=== PATIENT | male | born 1960 | race African-American/Black ===

== ENCOUNTER 2019-10-27 16:55 | Inpatient (IN) ==
[2019-10-27] MEDS ORDERED: MAGNESIUM SULF RIDER 4 GM in PREMIX 1 EACH IV PRN (20:53)
[2019-10-27] MEDS ORDERED: DEXTROSE 50% 25 GM/50 ML VIAL IV PRN (20:53)
[2019-10-27] MEDS ORDERED: GLUCAGON 1 MG VIAL IM PRN (20:53)
[2019-10-27] MEDS ORDERED: MAGNESIUM SULF RIDER 2 GM in PREMIX 1 EACH IV PRN (20:53)
[2019-10-27] MEDS ORDERED: ONDANSETRON 4 MG/2 ML VIAL IV PRN (20:53)
[2019-10-27] MEDS ORDERED: ALBUTEROL/IPRATROPIUM 3 ML NEB RESP TX PRN (20:53)
[2019-10-27] MEDS: SODIUM CHLORIDE 0.9% 1,000 ML IV SCH (21:00)
[2019-10-27] MEDS ORDERED: SODIUM CHLORIDE 0.9% 1,000 ML IV PRN (21:05)
[2019-10-27 21:11] LABS: Eosinophils % 0.3 % (0.00-10.9); Immature Granulocytes Absolute 0.07 #; Lymphocytes # 1.6 10*3/uL (1.4-4.0); Lymphocytes % 21.7 % (21.2-54.2); Mean Corpuscular HGB Conc 30.9 GM/DL (32-36); Mean Platelet Volume 11.3 FL (9.6-12.0); Monocytes % 16.3 % (1.7-12.7); NRBC # 0.02 10*3/uL; Neutrophils % 60.7 % (38.7-73.9); Platelet Count 75 T/CUMM (130-400); Red Blood Count 1.76 MC/CUMM (3.8-5.5); Red Cell Distribution Width 15.7 % (9.3-17.3); White Blood Count 7.2 T/CUMM (4-12)
[2019-10-27 21:17] LABS: Hematocrit 16.2 VOL% (42.0-52.0)
[2019-10-27 21:23] LABS: INR 4.1
[2019-10-27 21:25] LABS: PT Patient Result 44.3 SECS (9.6-12.2); Partial Thromboplastin Time 53.4 SECS (20.8-36.0)
[2019-10-27 21:51] LABS: Anisocytosis 1+; Lymphocytes 26 % (20-55); Macrocytosis 1+; Microcytosis 1+; Platelet Estimate Decreased; Polychromasia Slight; Segmented Neutrophils 64 % (50-85); Total Cells Counted 100
[2019-10-27] MEDS: INSULIN LISPRO 100 UNIT/ML SUBCUT SCH (21:58)
[2019-10-27] MEDS: PANTOPRAZOLE INJ 200 MG in SODIUM CHLORIDE 0.9% 250 ML IV SCH (21:59)
[2019-10-27 22:08] LABS: Risk Ratio 3.47; Thyroid Stimulating Hormone 0.674 uIU/ml (0.358-3.74); VLDL CHOLESTEROL 21.4 MG/DL
[2019-10-28] MEDS: FUROSEMIDE 20 MG/2 ML VIAL IV PRN ×2 (01:13→03:53)
[2019-10-28 02:19] LABS: Apearance,Urine CLEAR (Clear); Bilirubin,Urine Negative (Negative); Blood, Urine Small mg/dL (Negative); Glucose,Urine (UA) Negative (Negative); Ketones,Urine Negative (Negative); Nitrite,Urine Negative (Negative); Protein,Urine Negative; RBC,Urine 3 /HPF (0-4); Squamous Epithelial Cell,Urine Occasional /HPF (0-10); Urine Color Yellow (Yellow); Urine Specific Gravity 1.011 (1.001-1.035); Urine Urobilinogen < 2.0 EU/DL (0.2-1.0); WBC,Urine 2 /HPF (0-6)
[2019-10-28 05:59] LABS: Hematocrit 22.4 VOL% (42.0-52.0)
[2019-10-28 06:22] LABS: Hemoglobin 7.2 GM/DL (14.0-18.0)
[2019-10-28] MEDS ORDERED: SODIUM CHLORIDE 0.9% 1,000 ML IV PRN (07:36)
[2019-10-28] MEDS ORDERED: PHYTONADIONE 10 MG/1 ML AMP SUBCUT ONE (07:36)
[2019-10-28] MEDS: SODIUM CHLORIDE 0.9% 1,000 ML IV SCH (08:41)
[2019-10-28] MEDS: INSULIN LISPRO 100 UNIT/ML SUBCUT SCH ×3 (08:41→23:55)
[2019-10-28 10:33] LABS: Hematocrit 21.7 VOL% (42.0-52.0)
[2019-10-28 16:16] LABS: Calcium 8.3 MG/DL (8.5-10.1); Osmolality,Calculated 307.8 MOS/KG (273-304)
[2019-10-28] MEDS: MONTELUKAST 10 MG TABLET PO SCH (23:56)
[2019-10-28] MEDS: carvediloL 6.25 MG TABLET PO SCH (23:56)
[2019-10-29] MEDS: ALBUTEROL 2.5 MG/3 ML NEB RESP TX SCH ×3 (00:18→20:32)
[2019-10-29] MEDS: PANTOPRAZOLE INJ 200 MG in SODIUM CHLORIDE 0.9% 250 ML IV SCH (00:37)
[2019-10-29 01:14] LABS: Hematocrit 21.7 VOL% (42.0-52.0); Hemoglobin 7.3 GM/DL (14.0-18.0)
[2019-10-29 01:28] LABS: INR 2.2
[2019-10-29 01:29] LABS: PT Patient Result 23.5 SECS (9.6-12.2)
[2019-10-29 07:01] LABS: Basophils % 0.2 % (0.0-0.8); Eosinophils % 0.3 % (0.00-10.9); Hematocrit 21.2 VOL% (42.0-52.0); Immature Granulocytes % 1.2 %; Immature Granulocytes Absolute 0.07 #; Lymphocytes # 1.1 10*3/uL (1.4-4.0); Lymphocytes % 19.7 % (21.2-54.2); Mean Platelet Volume 11.1 FL (9.6-12.0); Monocytes % 14.5 % (1.7-12.7); Neutrophils % 64.1 % (38.7-73.9); Red Blood Count 2.28 MC/CUMM (3.8-5.5); Red Cell Distribution Width 14.6 % (9.3-17.3); White Blood Count 5.8 T/CUMM (4-12)
[2019-10-29 07:11] LABS: Platelet Count 65 T/CUMM (130-400)
[2019-10-29 07:16] LABS: Calcium 7.9 MG/DL (8.5-10.1); Osmolality,Calculated 296.5 MOS/KG (273-304)
[2019-10-29 07:18] LABS: Hypochromasia 1+
[2019-10-29 07:19] LABS: Microcytosis 1+; Ovalocytes Slight; Platelet Estimate Decreased
[2019-10-29] MEDS ORDERED: LACTATED RINGERS 1,000 ML IV SCH (08:00)
[2019-10-29] MEDS ORDERED: GLUCAGON 1 MG VIAL IM PRN (08:58)
[2019-10-29] MEDS ORDERED: DEXTROSE 10% 250 ML BAG IV PRN (08:58)
[2019-10-29 09:13] LABS: ABG Base Excess 4.4 MMOL/L (-2.5-2.5); ABG HCO3 28.9 MMOL/L (20-26); ABG Oxygen Saturation 84.8 % (95-100); ABG PCO2 43.2 MM HG (35-48); ABG PH 7.444 (7.35-7.45); ABG PO2 46.2 MM HG (80-95); ABG TCO2 30.3 MMOL/L (23-27); Allen Test Positive
[2019-10-29 09:24] LABS: INR 1.6; PT Patient Result 17.3 SECS (9.6-12.2)
[2019-10-29] MEDS ORDERED: LIDOCAINE 2% 5 ML VIAL ONE (10:00)
[2019-10-29] MEDS ORDERED: PROPOFOL 200 MG/20 ML VIAL IV ONE (10:00)
[2019-10-29] MEDS ORDERED: EPOETIN ALFA 10,000 UNIT/1 ML VIAL IV PRN (10:06)
[2019-10-29] MEDS ORDERED: EPINEPHrine 1 MG/ML VIAL ONE (12:37)
[2019-10-29] MEDS: INSULIN LISPRO 100 UNIT/ML SUBCUT SCH ×4 (15:29→22:32)
[2019-10-29] MEDS: AMIODARONE 200 MG TABLET PO SCH (15:30)
[2019-10-29] MEDS: LACTATED RINGERS 1,000 ML IV SCH (15:30)
[2019-10-29] MEDS: carvediloL 6.25 MG TABLET PO SCH ×2 (15:30→19:14)
[2019-10-29] MEDS: MONTELUKAST 10 MG TABLET PO SCH (22:22)
[2019-10-29] MEDS: PANTOPRAZOLE 40 MG VIAL IV SCH (22:24)
[2019-10-30 05:26] LABS: Basophils % 0.4 % (0.0-0.8); Eosinophils # 0.1 10*3/uL (0.0-0.87); Eosinophils % 0.9 % (0.00-10.9); Hematocrit 19.1 VOL% (42.0-52.0); Immature Granulocytes % 1.1 %; Immature Granulocytes Absolute 0.06 #; Lymphocytes # 1.1 10*3/uL (1.4-4.0); Lymphocytes % 20.5 % (21.2-54.2); Mean Corpuscular HGB Conc 31.4 GM/DL (32-36); Mean Corpuscular Volume 95.5 FL (87-102); Monocytes % 17.6 % (1.7-12.7); Neutrophils % 59.5 % (38.7-73.9); Platelet Count 61 T/CUMM (130-400); Red Cell Distribution Width 15.3 % (9.3-17.3); White Blood Count 5.3 T/CUMM (4-12)
[2019-10-30] MEDS ORDERED: SODIUM CHLORIDE 0.9% 1,000 ML IV PRN (05:42)
[2019-10-30 06:31] LABS: Band Neutrophils 1 % (0-10); Lymphocytes 16 % (20-55); Nucleated Red Blood Cells 1 (0-5); Segmented Neutrophils 72 % (50-85); Total Cells Counted 100
[2019-10-30 06:32] LABS: Atypical Lymphocytes Few; Hypochromasia 1+; Microcytosis 1+; Polychromasia Slight
[2019-10-30 06:33] LABS: Platelet Estimate Decreased
[2019-10-30] MEDS: ALBUTEROL 2.5 MG/3 ML NEB RESP TX SCH ×2 (07:48→19:51)
[2019-10-30] MEDS: INSULIN LISPRO 100 UNIT/ML SUBCUT SCH ×4 (08:00→20:50)
[2019-10-30] MEDS ORDERED: LACTATED RINGERS 1,000 ML IV SCH (08:00)
[2019-10-30] MEDS: LACTATED RINGERS 1,000 ML IV SCH (09:51)
[2019-10-30] MEDS: carvediloL 6.25 MG TABLET PO SCH ×2 (09:51→17:23)
[2019-10-30] MEDS: AMIODARONE 200 MG TABLET PO SCH (09:55)
[2019-10-30] MEDS: PANTOPRAZOLE 40 MG VIAL IV SCH ×2 (09:55→20:46)
[2019-10-30 18:22] LABS: Hematocrit 24.7 VOL% (42.0-52.0); Hemoglobin 7.9 GM/DL (14.0-18.0)
[2019-10-30] MEDS: MONTELUKAST 10 MG TABLET PO SCH (20:46)
[2019-10-31 06:21] LABS: Basophils % 0.2 % (0.0-0.8); Eosinophils % 0.4 % (0.00-10.9); Hematocrit 24.4 VOL% (42.0-52.0); Immature Granulocytes % 1.5 %; Immature Granulocytes Absolute 0.08 #; Lymphocytes % 17.8 % (21.2-54.2); Mean Corpuscular HGB Conc 32.8 GM/DL (32-36); Mean Corpuscular Volume 90.7 FL (87-102); Monocytes % 18.3 % (1.7-12.7); Neutrophils % 61.8 % (38.7-73.9); Platelet Count 60 T/CUMM (130-400); Red Blood Count 2.69 MC/CUMM (3.8-5.5); Red Cell Distribution Width 17.4 % (9.3-17.3); White Blood Count 5.4 T/CUMM (4-12)
[2019-10-31 06:43] LABS: Osmolality,Calculated 288.4 MOS/KG (273-304)
[2019-10-31] MEDS: ALBUTEROL 2.5 MG/3 ML NEB RESP TX SCH ×2 (07:24→20:08)
[2019-10-31 07:26] LABS: Band Neutrophils 4 % (0-10); Lymphocytes 19 % (20-55); Nucleated Red Blood Cells 1 (0-5); Platelet Estimate Decreased; Segmented Neutrophils 67 % (50-85); Total Cells Counted 100
[2019-10-31 07:27] LABS: Anisocytosis 2+; Macrocytosis Slight; Polychromasia Slight
[2019-10-31] MEDS: INSULIN LISPRO 100 UNIT/ML SUBCUT SCH ×4 (08:10→21:40)
[2019-10-31] MEDS: carvediloL 6.25 MG TABLET PO SCH ×2 (08:42→16:33)
[2019-10-31] MEDS: AMIODARONE 200 MG TABLET PO SCH (08:42)
[2019-10-31] MEDS: PANTOPRAZOLE 40 MG VIAL IV SCH ×2 (08:42→21:35)
[2019-10-31] MEDS: MONTELUKAST 10 MG TABLET PO SCH (21:35)
[2019-11-01 05:21] LABS: Basophils % 0.2 % (0.0-0.8); Eosinophils % 0.4 % (0.00-10.9); Hematocrit 24.3 VOL% (42.0-52.0); Hemoglobin 7.6 GM/DL (14.0-18.0); Immature Granulocytes % 1.6 %; Immature Granulocytes Absolute 0.08 #; Lymphocytes # 1.3 10*3/uL (1.4-4.0); Mean Corpuscular HGB Conc 31.3 GM/DL (32-36); Mean Corpuscular Volume 93.1 FL (87-102); Mean Platelet Volume 11.1 FL (9.6-12.0); Monocytes % 16.9 % (1.7-12.7); Neutrophils % 54.9 % (38.7-73.9); Platelet Count 68 T/CUMM (130-400); Red Blood Count 2.61 MC/CUMM (3.8-5.5); White Blood Count 5.1 T/CUMM (4-12)
[2019-11-01 05:51] LABS: Calcium 8.1 MG/DL (8.5-10.1); Osmolality,Calculated 299.8 MOS/KG (273-304)
[2019-11-01 05:56] LABS: Anisocytosis 2+; Band Neutrophils 2 % (0-10); Eosinophils 3 % (0-10); Lymphocytes 22 % (20-55); Platelet Estimate Decreased; Segmented Neutrophils 60 % (50-85); Total Cells Counted 100
[2019-11-01 05:57] LABS: Poikilocytosis Slight
[2019-11-01] MEDS: ALBUTEROL 2.5 MG/3 ML NEB RESP TX SCH ×2 (07:31→19:49)
[2019-11-01] MEDS: INSULIN LISPRO 100 UNIT/ML SUBCUT SCH ×4 (08:54→21:31)
[2019-11-01] MEDS: carvediloL 6.25 MG TABLET PO SCH ×2 (09:02→16:00)
[2019-11-01] MEDS: PANTOPRAZOLE 40 MG VIAL IV SCH ×2 (09:03→21:32)
[2019-11-01] MEDS: AMIODARONE 200 MG TABLET PO SCH (09:03)
[2019-11-01] MEDS: MONTELUKAST 10 MG TABLET PO SCH (21:32)
[2019-11-02 05:17] LABS: Basophils % 0.2 % (0.0-0.8); Eosinophils % 0.4 % (0.00-10.9); Hematocrit 22.5 VOL% (42.0-52.0); Hemoglobin 7.1 GM/DL (14.0-18.0); Immature Granulocytes % 1.6 %; Immature Granulocytes Absolute 0.09 #; Lymphocytes # 1.5 10*3/uL (1.4-4.0); Lymphocytes % 26.2 % (21.2-54.2); Mean Corpuscular HGB Conc 31.6 GM/DL (32-36); Mean Corpuscular Volume 93.4 FL (87-102); Mean Platelet Volume 11.1 FL (9.6-12.0); Monocytes % 18.8 % (1.7-12.7); Neutrophils % 52.8 % (38.7-73.9); Platelet Count 72 T/CUMM (130-400); Red Blood Count 2.41 MC/CUMM (3.8-5.5); Red Cell Distribution Width 16.6 % (9.3-17.3); White Blood Count 5.6 T/CUMM (4-12)
[2019-11-02 05:40] LABS: Hypochromasia 1+; Lymphocytes 33 % (20-55); Platelet Estimate Decreased; Segmented Neutrophils 57 % (50-85); Total Cells Counted 100
[2019-11-02 05:41] LABS: Atypical Lymphocytes Few
[2019-11-02 05:56] LABS: Calcium 8.1 MG/DL (8.5-10.1); Osmolality,Calculated 297.3 MOS/KG (273-304)
[2019-11-02] MEDS: INSULIN LISPRO 100 UNIT/ML SUBCUT SCH ×4 (07:19→20:47)
[2019-11-02] MEDS: ALBUTEROL 2.5 MG/3 ML NEB RESP TX SCH ×2 (07:44→20:23)
[2019-11-02] MEDS ORDERED: SODIUM CHLORIDE 0.9% 1,000 ML IV PRN (07:54)
[2019-11-02] MEDS: carvediloL 6.25 MG TABLET PO SCH ×2 (13:47→19:01)
[2019-11-02] MEDS: AMIODARONE 200 MG TABLET PO SCH (13:47)
[2019-11-02] MEDS: PANTOPRAZOLE 40 MG VIAL IV SCH ×2 (13:48→20:50)
[2019-11-02] MEDS: MONTELUKAST 10 MG TABLET PO SCH (20:50)
[2019-11-03 06:25] LABS: Basophils % 0.5 % (0.0-0.8); Eosinophils % 0.5 % (0.00-10.9); Hematocrit 28.4 VOL% (42.0-52.0); Hemoglobin 9.2 GM/DL (14.0-18.0); Immature Granulocytes % 1.5 %; Lymphocytes # 1.9 10*3/uL (1.4-4.0); Lymphocytes % 28.4 % (21.2-54.2); Mean Corpuscular HGB Conc 32.4 GM/DL (32-36); Mean Corpuscular Volume 90.7 FL (87-102); Mean Platelet Volume 11.8 FL (9.6-12.0); Monocytes % 19.1 % (1.7-12.7); Platelet Count 90 T/CUMM (130-400); Red Blood Count 3.13 MC/CUMM (3.8-5.5); Red Cell Distribution Width 17.2 % (9.3-17.3); White Blood Count 6.7 T/CUMM (4-12)
[2019-11-03 06:50] LABS: Lymphocytes 26 % (20-55); Platelet Estimate Decreased; Segmented Neutrophils 56 % (50-85); Total Cells Counted 100
[2019-11-03 06:51] LABS: Atypical Lymphocytes Few; Calcium 8.1 MG/DL (8.5-10.1); Hypochromasia 1+; Osmolality,Calculated 291.1 MOS/KG (273-304)
[2019-11-03] MEDS: ALBUTEROL 2.5 MG/3 ML NEB RESP TX SCH (07:28)
[2019-11-03] MEDS: INSULIN LISPRO 100 UNIT/ML SUBCUT SCH ×2 (08:12→11:30)
[2019-11-03] MEDS: carvediloL 6.25 MG TABLET PO SCH (08:45)
[2019-11-03] MEDS: AMIODARONE 200 MG TABLET PO SCH (08:45)
[2019-11-03] MEDS: PANTOPRAZOLE 40 MG VIAL IV SCH (08:45)
[2019-11-03 15:42] VITALS: BP 102/52
== END 2019-11-03 17:42 | disposition swing bed (61) | DRG 377 ==
LOC: N.ICU 19:31 → SUATTDRO 19:31 → N.5E 10-28 20:13 → N.ICU 10-29 01:11 → N.5E 10-29 19:47
PROVIDERS: ADMIT Internal Medicine; ATTEND Internal Medicine

== ENCOUNTER 2020-01-06 16:58 | Observation (INO) ==
[2020-01-06 18:04] LABS: Basophils # 0.1 10*3/uL (0.0-0.2); Basophils % 0.9 % (0.0-0.8); Eosinophils # 0.9 10*3/uL (0.0-0.87); Eosinophils % 7.2 % (0.00-10.9); Hematocrit 41.5 VOL% (42.0-52.0); Hemoglobin 12.3 GM/DL (14.0-18.0); Immature Granulocytes % 0.6 %; Immature Granulocytes Absolute 0.07 #; Lymphocytes % 23.4 % (21.2-54.2); Mean Corpuscular HGB Conc 29.6 GM/DL (32-36); Mean Corpuscular Volume 92.4 FL (87-102); Mean Platelet Volume 10.8 FL (9.6-12.0); Monocytes % 10.2 % (1.7-12.7); Neutrophils % 57.7 % (38.7-73.9); Platelet Count 167 T/CUMM (130-400); Red Blood Count 4.49 MC/CUMM (3.8-5.5); Red Cell Distribution Width 17.5 % (9.3-17.3); White Blood Count 12.7 T/CUMM (4-12)
[2020-01-06] MEDS ORDERED: FUROSEMIDE 40 MG/4 ML VIAL IV STA (18:34)
[2020-01-06] MEDS ORDERED: methylPREDNISolone SOD SUC 125 MG/2 ML VIAL IV STA (18:34)
[2020-01-06] MEDS ORDERED: ALBUTEROL 2.5 MG/3 ML NEB RESP TX ONE (18:47)
[2020-01-06] MEDS ORDERED: ALBUTEROL NEB SOLN 5 MG/ML 20 ML/BOTTLE CONT NEB SCH (19:00)
[2020-01-06 19:07] LABS: INR 3.3
[2020-01-06 19:10] LABS: Calcium 9.8 MG/DL (8.5-10.1)
[2020-01-06 20:38] LABS: Albumin 3.3 G/DL (3.4-5.0); Bilirubin,Total 0.5 MG/DL (0.2-1.0); Calcium 9.6 MG/DL (8.5-10.1); Total Protein 8.7 G/DL (6.4-8.3)
[2020-01-06] MEDS ORDERED: ONDANSETRON 4 MG/2 ML VIAL IV PRN (22:26)
[2020-01-06] MEDS ORDERED: FAMOTIDINE 20 MG TABLET PO PRN (22:26)
[2020-01-06] MEDS ORDERED: GLUCAGON 1 MG VIAL IM PRN (22:26)
[2020-01-06] MEDS ORDERED: hydrALAZINE 20 MG/1 ML VIAL IV PRN (22:26)
[2020-01-06] MEDS ORDERED: DEXTROSE 50% 25 GM/50 ML SYRINGE IV PRN (22:26)
[2020-01-06] MEDS ORDERED: DOCUSATE SODIUM 100 MG CAPSULE PO PRN (22:26)
[2020-01-06] MEDS ORDERED: ALBUTEROL 2.5 MG/3 ML NEB RESP TX PRN (22:26)
[2020-01-06] MEDS ORDERED: Fluticasone-Umeclidin-Vilanter [Trelegy Ellipta] INH SCH (22:26)
[2020-01-06] MEDS: INSULIN LISPRO 100 UNIT/ML SUBCUT SCH (22:45)
[2020-01-06] MEDS: MONTELUKAST 10 MG TABLET PO SCH (23:17)
[2020-01-06] MEDS: carvediloL 6.25 MG TABLET PO SCH (23:17)
[2020-01-06] MEDS: CALCIUM ACETATE 667 MG CAPSULE PO SCH (23:17)
[2020-01-06] MEDS: DOXYCYCLINE HYCLATE INJ 100 MG in SODIUM CHLORIDE 0.9% 100 ML IV SCH (23:20)
[2020-01-06] MEDS: guaiFENesin 200 MG/10 ML UDCUP PO PRN (23:42)
[2020-01-07] MEDS: ALBUTEROL/IPRATROPIUM 3 ML NEB RESP TX SCH ×4 (00:49→18:20)
[2020-01-07 06:01] LABS: INR 2.8
[2020-01-07 06:03] LABS: Calcium 9.3 MG/DL (8.5-10.1); Osmolality,Calculated 285.2 MOS/KG (273-304)
[2020-01-07 06:07] LABS: PT Patient Result 30.2 SECS (9.6-12.2)
[2020-01-07 07:10] LABS: Basophils % 0.3 % (0.0-0.8); Eosinophils % 0.1 % (0.00-10.9); Hematocrit 38.5 VOL% (42.0-52.0); Hemoglobin 11.6 GM/DL (14.0-18.0); Immature Granulocytes % 0.5 %; Immature Granulocytes Absolute 0.05 #; Lymphocytes # 1.5 10*3/uL (1.4-4.0); Lymphocytes % 14.9 % (21.2-54.2); Mean Corpuscular HGB Conc 30.1 GM/DL (32-36); Mean Corpuscular Volume 90.6 FL (87-102); Mean Platelet Volume 11.2 FL (9.6-12.0); Neutrophils % 82.2 % (38.7-73.9); Platelet Count 177 T/CUMM (130-400); Red Blood Count 4.25 MC/CUMM (3.8-5.5); Red Cell Distribution Width 17.3 % (9.3-17.3)
[2020-01-07] MEDS: ASPIRIN EC 81 MG TABLET PO SCH (09:00)
[2020-01-07] MEDS: CALCIUM ACETATE 667 MG CAPSULE PO SCH ×3 (09:00→18:01)
[2020-01-07] MEDS ORDERED: [UNRECOGNIZED DRUG - REMARK] PO SCH (09:00)
[2020-01-07] MEDS: PANTOPRAZOLE 40 MG TABLET PO SCH (09:00)
[2020-01-07] MEDS: MULTIVITAMIN (BEROCCA) TABLET PO SCH (09:00)
[2020-01-07] MEDS ORDERED: VITAMIN B COMPLEX PO SCH (09:00)
[2020-01-07] MEDS: AMIODARONE 200 MG TABLET PO SCH (09:00)
[2020-01-07] MEDS: carvediloL 6.25 MG TABLET PO SCH ×2 (09:03→18:01)
[2020-01-07] MEDS: methylPREDNISolone SOD SUC 40 MG/1 ML VIAL IV SCH ×2 (09:06→21:31)
[2020-01-07] MEDS: INSULIN LISPRO 100 UNIT/ML SUBCUT SCH ×4 (09:43→22:02)
[2020-01-07] MEDS: guaiFENesin 200 MG/10 ML UDCUP PO PRN ×3 (09:47→22:01)
[2020-01-07] MEDS: DOXYCYCLINE HYCLATE INJ 100 MG in SODIUM CHLORIDE 0.9% 100 ML IV SCH ×2 (10:22→22:03)
[2020-01-07] MEDS: ACETAMINOPHEN 325 MG TABLET PO PRN ×2 (18:05→22:01)
[2020-01-07] MEDS: MONTELUKAST 10 MG TABLET PO SCH (21:31)
[2020-01-08] MEDS: ALBUTEROL/IPRATROPIUM 3 ML NEB RESP TX SCH ×2 (00:35→06:45)
[2020-01-08] MEDS: ACETAMINOPHEN 325 MG TABLET PO PRN (06:20)
[2020-01-08] MEDS: guaiFENesin 200 MG/10 ML UDCUP PO PRN ×2 (06:20→12:07)
[2020-01-08] MEDS: INSULIN LISPRO 100 UNIT/ML SUBCUT SCH ×2 (09:54→12:54)
[2020-01-08] MEDS: CALCIUM ACETATE 667 MG CAPSULE PO SCH ×2 (10:19→12:05)
[2020-01-08 11:54] VITALS: BP 108/36
[2020-01-08] MEDS: ASPIRIN EC 81 MG TABLET PO SCH (12:05)
[2020-01-08] MEDS: methylPREDNISolone SOD SUC 40 MG/1 ML VIAL IV SCH (12:05)
[2020-01-08] MEDS: MULTIVITAMIN (BEROCCA) TABLET PO SCH (12:05)
[2020-01-08] MEDS: carvediloL 6.25 MG TABLET PO SCH (12:05)
[2020-01-08] MEDS: AMIODARONE 200 MG TABLET PO SCH (12:05)
[2020-01-08] MEDS: PANTOPRAZOLE 40 MG TABLET PO SCH (12:06)
[2020-01-08] MEDS: DOXYCYCLINE HYCLATE INJ 100 MG in SODIUM CHLORIDE 0.9% 100 ML IV SCH (12:11)
== END 2020-01-08 15:50 | disposition home or self-care (01) ==
LOC: EDUNIT# → EDSEX → EDBD → N.ED 16:58 → N.EDINP 16:58 → N.2W 20:41
PROVIDERS: ADMIT Internal Medicine; ATTEND Internal Medicine

== ENCOUNTER 2022-10-02 19:33 | Inpatient (IN) ==
[~2022-10-02 19:33] MED LIST: PANTOPRAZOLE INJ 200 MG in SODIUM CHLORIDE 0.9% 250 ML IV SCH
[2022-10-02] MEDS ORDERED: SODIUM CHLORIDE 0.9% 1,000 ML IV PRN (19:53)
[2022-10-02] MEDS ORDERED: PANTOPRAZOLE INJ 80 MG in SODIUM CHLORIDE 0.9% 100 ML IV ONE ×2 (19:54→20:00)
[2022-10-02 20:15] LABS: Basophils % 0.3 % (0.0-0.8); Eosinophils # 0.1 10*3/uL (0.0-0.87); Eosinophils % 1.8 % (0.00-10.9); Immature Granulocytes % 0.4 %; Immature Granulocytes Absolute 0.03 #; Lymphocytes # 1.1 10*3/uL (1.4-4.0); Lymphocytes % 16.8 % (21.2-54.2); Mean Corpuscular HGB Conc 27.4 GM/DL (32-36); Mean Corpuscular Volume 97.1 FL (87-102); Mean Platelet Volume 11.8 FL (9.6-12.0); Monocytes # 1.1 10*3/uL (0.11-0.8); Monocytes % 16.4 % (1.7-12.7); Neutrophils % 64.3 % (38.7-73.9); Platelet Count 129 T/CUMM (130-400); Red Blood Count 1.73 MC/CUMM (3.8-5.5); Red Cell Distribution Width 20.1 % (9.3-17.3); White Blood Count 6.8 T/CUMM (4-12)
[2022-10-02 20:23] LABS: INR 1.1; PT Patient Result 12.3 SECS (10.1-12.1)
[2022-10-02] MEDS ORDERED: MORPHINE 2 MG/1 ML SYRINGE IV PRN (20:27)
[2022-10-02] MEDS ORDERED: ACETAMINOPHEN 325 MG TABLET PO PRN (20:27)
[2022-10-02] MEDS ORDERED: hydrALAZINE 20 MG/1 ML VIAL IV PRN (20:27)
[2022-10-02] MEDS ORDERED: ONDANSETRON 4 MG/2 ML VIAL IV PRN (20:27)
[2022-10-02 20:29] LABS: Hematocrit 16.8 VOL% (42.0-52.0); Hemoglobin 4.6 GM/DL (14.0-18.0)
[2022-10-02 20:35] LABS: Lymphocytes 15 % (20-55); Total Cells Counted 100
[2022-10-02 20:36] LABS: Anisocytosis 1+; Hypochromia 2+; Platelet Estimate Normal; Polychromasia Slight
[2022-10-02 20:37] LABS: Microcytosis 1+
[2022-10-02 20:43] LABS: Albumin 2.7 G/DL (3.4-5.0); Bilirubin,Total 0.6 MG/DL (0.20-1.00); Calcium 8.5 MG/DL (8.5-10.1); Osmolality,Calculated 276.5 MOS/KG (273-304); Total Protein 7.1 G/DL (6.4-8.2)
[2022-10-02] MEDS ORDERED: ALBUTEROL/IPRATROPIUM 3 ML NEB RESP TX PRN (21:47)
[2022-10-03] MEDS ORDERED: SODIUM CHLORIDE 0.9% 1,000 ML IV PRN ×2 (01:41→08:18)
[2022-10-03] MEDS: PANTOPRAZOLE INJ 200 MG in SODIUM CHLORIDE 0.9% 250 ML IV SCH (02:09)
[2022-10-03 07:21] LABS: Basophils % 0.5 % (0.0-0.8); Eosinophils # 0.2 10*3/uL (0.0-0.87); Immature Granulocytes % 0.7 %; Immature Granulocytes Absolute 0.04 #; Lymphocytes # 1.2 10*3/uL (1.4-4.0); Lymphocytes % 19.8 % (21.2-54.2); Mean Corpuscular HGB Conc 28.4 GM/DL (32-36); Mean Corpuscular Volume 93.6 FL (87-102); Mean Platelet Volume 11.5 FL (9.6-12.0); Monocytes % 15.6 % (1.7-12.7); Neutrophils % 60.4 % (38.7-73.9); Platelet Count 130 T/CUMM (130-400); Red Blood Count 1.88 MC/CUMM (3.8-5.5); Red Cell Distribution Width 19.7 % (9.3-17.3); White Blood Count 6.1 T/CUMM (4-12)
[2022-10-03 07:23] LABS: Hematocrit 17.6 VOL% (42.0-52.0)
[2022-10-03 07:37] LABS: Calcium 8.6 MG/DL (8.5-10.1); Osmolality,Calculated 279.4 MOS/KG (273-304); Potassium 3.3 MMOL/L (3.5-5.1)
[2022-10-03 07:41] LABS: % Iron Saturation 11.6 % (18-50); Ferritin 70.4 ng/mL (26-388)
[2022-10-03 08:29] LABS: Eosinophils 2 % (0-10); Lymphocytes 18 % (20-55); Total Cells Counted 100
[2022-10-03 08:30] LABS: Microcytosis 1+; Ovalocytes Slight; Platelet Estimate Adequate; Polychromasia Slight
[2022-10-03 08:31] LABS: Hypochromia Slight
[2022-10-03] MEDS ORDERED: ETOMIDATE 20 MG/10 ML VIAL IV ONE (10:17)
[2022-10-03] MEDS: SODIUM CHLORIDE 0.9% 1,000 ML IV SCH (10:25)
[2022-10-03] MEDS ORDERED: LIDOCAINE 2% 5 ML VIAL ONE (10:31)
[2022-10-03] MEDS ORDERED: propofoL 200 MG/20 ML VIAL IV ONE (10:31)
[2022-10-03] MEDS ORDERED: PHENYLEPHRINE 1 MG/10 ML SYRINGE IV ONE (10:33)
[2022-10-03] MEDS ORDERED: GLUCAGON 1 MG VIAL IM PRN (11:18)
[2022-10-03] MEDS ORDERED: DEXTROSE 10% 250 ML BAG IV PRN (11:18)
[2022-10-03] MEDS ORDERED: EPOETIN ALFA-EPBX 4,000 UNIT/ML VIAL IV PRN (12:33)
[2022-10-03] MEDS ORDERED: LACTATED RINGERS 250 ML IV ONE (14:47)
[2022-10-03 16:03] LABS: Hematocrit 22.1 VOL% (42.0-52.0); Hemoglobin 6.8 GM/DL (14.0-18.0)
[2022-10-03] MEDS: CALCIUM ACETATE 667 MG CAPSULE PO SCH ×2 (16:29→17:40)
[2022-10-03] MEDS: GABAPENTIN 100 MG CAPSULE PO SCH ×2 (16:49→21:10)
[2022-10-03] MEDS: FERRIC GLUCONATE COMPLEX 125 MG in SODIUM CHLORIDE 0.9% 100 ML IV SCH (16:51)
[2022-10-03 19:39] LABS: Hematocrit 22.9 VOL% (42.0-52.0); Hemoglobin 6.9 GM/DL (14.0-18.0)
[2022-10-03] MEDS ORDERED: MONTELUKAST 10 MG TABLET PO SCH (21:00)
[2022-10-03] MEDS: NON-FORMULARY MEDICATION (Budesonide-Glycopyr-Formoterol [Breztri Aerosphere] 160-9-4.8 mc INH SCH (21:13)
[2022-10-04 01:16] LABS: Hematocrit 23.5 VOL% (42.0-52.0)
[2022-10-04] MEDS: PANTOPRAZOLE INJ 200 MG in SODIUM CHLORIDE 0.9% 250 ML IV SCH (03:07)
[2022-10-04 06:01] LABS: Basophils % 0.5 % (0.0-0.8); Eosinophils # 0.1 10*3/uL (0.0-0.87); Eosinophils % 1.9 % (0.00-10.9); Hematocrit 23.1 VOL% (42.0-52.0); Hemoglobin 6.9 GM/DL (14.0-18.0); Immature Granulocytes % 0.6 %; Immature Granulocytes Absolute 0.04 #; Lymphocytes # 1.1 10*3/uL (1.4-4.0); Lymphocytes % 17.5 % (21.2-54.2); Mean Corpuscular HGB Conc 29.9 GM/DL (32-36); Mean Corpuscular Volume 92.8 FL (87-102); Mean Platelet Volume 12.1 FL (9.6-12.0); Monocytes % 16.3 % (1.7-12.7); Neutrophils % 63.2 % (38.7-73.9); Platelet Count 126 T/CUMM (130-400); Red Blood Count 2.49 MC/CUMM (3.8-5.5); Red Cell Distribution Width 18.2 % (9.3-17.3); White Blood Count 6.3 T/CUMM (4-12)
[2022-10-04 06:19] LABS: Calcium 8.8 MG/DL (8.5-10.1); Osmolality,Calculated 279.7 MOS/KG (273-304); Potassium 3.4 MMOL/L (3.5-5.1)
[2022-10-04 06:26] LABS: Anisocytosis Slight; Eosinophils 2 % (0-10); Hypochromia Slight; Lymphocytes 19 % (20-55); Platelet Estimate Decreased; Total Cells Counted 100
[2022-10-04 07:43] LABS: Hematocrit 23.8 VOL% (42.0-52.0); Hemoglobin 7.1 GM/DL (14.0-18.0)
[2022-10-04 07:45] VITALS: BP 98/47
[2022-10-04] MEDS ORDERED: MULTIVITAMIN (OCUVITE) TABLET PO SCH (09:00)
[2022-10-04] MEDS ORDERED: AMIODARONE 200 MG TABLET PO SCH (09:00)
[2022-10-04] MEDS ORDERED: METOPROLOL SUCCINATE XL 25 MG TABLET PO SCH (09:00)
[2022-10-04] MEDS ORDERED: ATORVASTATIN 40 MG TABLET PO SCH (09:00)
[2022-10-04] MEDS: GABAPENTIN 100 MG CAPSULE PO SCH (10:24)
[2022-10-04] MEDS: CALCIUM ACETATE 667 MG CAPSULE PO SCH (10:24)
[2022-10-04] MEDS: FERRIC GLUCONATE COMPLEX 125 MG in SODIUM CHLORIDE 0.9% 100 ML IV SCH (10:24)
[2022-10-04] MEDS: SODIUM CHLORIDE 0.9% 1,000 ML IV SCH (11:33)
[2022-10-04] MEDS: NON-FORMULARY MEDICATION (Budesonide-Glycopyr-Formoterol [Breztri Aerosphere] 160-9-4.8 mc INH SCH (11:33)
[2022-10-09] MEDS ORDERED: BISACODYL 5 MG TABLET PO ONE (12:00)
[2022-10-09] MEDS ORDERED: POLYETHYLENE GLYCOL POWDER 255 GM BOTTLE PO ONE (18:00)
== END 2022-10-04 12:30 | disposition home or self-care (01) | DRG 377 ==
LOC: EDBD → EDUNIT# → N.ED 19:33 → N.EDINP 20:27 → N.3E 21:41
PROVIDERS: ADMIT Internal Medicine; ATTEND Internal Medicine